=== PATIENT | female | born 1970 | race Caucasian/White ===

== ENCOUNTER 2018-11-12 07:12 | Day surgery (SDC) | payer OTHER ==
[~2018-11-12] VITALS: Ht 154.9 cm; Wt 73.9 kg
[2018-11-12] MEDS ORDERED: MIDAZOLAM 2 MG/2 ML VIAL ONE (08:30)
[2018-11-12] MEDS ORDERED: fentaNYL 0.05 MG/ML VIAL ONE (08:30)
[2018-11-12] MEDS ORDERED: LIDOCAINE 2% 100 MG/5 ML UJET TP ONE (08:30)
== END 2018-11-12 11:10 | disposition home or self-care (01) ==
LOC: MDS 07:12 → MMU 07:13 → MDS 11:10
PROVIDERS: ATTEND Internal Medicine Gastroenterology
DX: Z12.11 Encounter for screening for malignant neoplasm of colon (principal); K22.10 Ulcer of esophagus without bleeding; K31.89 Other diseases of stomach and duodenum; K21.9 Gastro-esophageal reflux disease without esophagitis; E66.3 Overweight; Z68.30 Body mass index [BMI] 30.0-30.9, adult; Z90.49 Acquired absence of other specified parts of digestive tract; Z79.899 Other long term (current) drug therapy; Z98.890 Other specified postprocedural states
CPT/HCPCS: 36415; 43239; 45378; 81025; 86677; 88305; 88313; J2250; J3010; J7030